=== PATIENT | male | born 1985 | race Caucasian/White ===

== ENCOUNTER 2020-12-27 13:29 | Emergency (ER) | payer OTHER ==
[2020-12-27 13:58] VITALS: BP 109/60; PULSE 66; TEMP 98; BMI 26.6
[2020-12-27 15:20] LABS: BASO % 1.9 % (0-2.0); HEMATOCRIT 24.6 % (35.4-49); HEMOGLOBIN 8.5 GM/dL (11.7-16.9); LYMPH % 17.4 % (8-40); MCH 35.4 pg (25.7-33.7); MCHC 34.4 g/dl (32.0-35.9); MEAN CELL VOLUME 102.9 fl (80-96); MEAN PLT VOLUME 8.5 fl (7.5-11.1); MONO % 5.2 % (3.8-10.2); NEUT % 73.5 % (42.8-82.8); PLATELET COUNT 265 10^3/uL (134-434); WHITE BLOOD COUNT 12.9 K/mm3 (4.0-10.0)
[2020-12-27 15:26] LABS: INR 3.38 (0.83-1.09)
[2020-12-27 15:29] LABS: ACTIVATED PTT 52.9 SECONDS (25.2-36.5)
[2020-12-27] MEDS ORDERED: LACTULOSE 20 GM/30 ML UDC (FOR ORAL USE ONLY) PO ONE (15:45)
[2020-12-27 15:52] LABS: ANISOCYTOSIS 1+; CHLORIDE 112 mmol/L (98-107); MACROCYTOSIS 1+; PLATELET ESTIMATE NORMAL; SODIUM 140 mmol/L (136-145)
[2020-12-27 15:53] LABS: CALCIUM 7.8 mg/dL (8.5-10.1)
[2020-12-27 15:54] LABS: ALBUMIN 1.3 g/dl (3.4-5.0); ANION GAP 9 MMOL/L (8-16); BLOOD UREA NITROGEN 4.8 mg/dL (7-18); CO2 19 mmol/L (21-32); GLUCOSE,RANDOM 52 mg/dL (74-106); MAGNESIUM 1.4 mg/dL (1.8-2.4)
[2020-12-27] MEDS ORDERED: LACTULOSE 20 GM/30 ML UDC (FOR ORAL USE ONLY) ONE (15:56)
[2020-12-27 15:57] LABS: BILIRUBIN,DIRECT 13.7 mg/dL (0.0-0.2); CREATININE 0.9 mg/dL (0.55-1.3); SGOT/AST 78 U/L (15-37); SGPT/ALT 21 U/L (13-61)
[2020-12-27] MEDS ORDERED: DEXTROSE 50%-WATER - 25 GM/50 ML VIAL IVPUSH ONE (15:57)
[2020-12-27 15:59] LABS: TOT PROT 6.7 g/dl (6.4-8.2)
[2020-12-27 16:00] LABS: ALK PHOS 115 U/L (45-117); N-TERMINAL BNP 300.8 pg/ml (5-125)
[2020-12-27 16:02] LABS: BILIRUBIN,TOTAL 18.8 mg/dL (0.2-1)
[2020-12-27] MEDS ORDERED: DEXTROSE 50%-WATER 25 GM/50 ML DISP.SYRIN ONE (16:04)
== END 2020-12-27 17:02 | disposition left against medical advice (07) ==
LOC: JER 13:29
PROC: 3E033GC Introduction of Other Therapeutic Substance into Peripheral Vein, Percutaneous Approach (ICD-10-PCS; principal; 2020-12-27)
DX: K72.00 Acute and subacute hepatic failure without coma (principal)
CPT/HCPCS: 36415; 71045-TC-FY; 80053; 82140; 82248; 82962; 83605; 83615; 83735; 83880; 84100; 85025; 85610; 85730; 86704; 86803; 86850; 86900; 86901; 87340; 87517; 93005; 93010; 99285-25; C9803; U0003; U0005